=== PATIENT | male | born 1990 | race Caucasian/White ===

== ENCOUNTER → 2022-03-01 12:26 | Outpatient (BNVA) | payer OTHER, SELFPAY | PROVIDERS: Visit Provider Physician Assistant | DX: S30.0XXA Contusion of lower back and pelvis, initial encounter (principal); W01.198A Fall on same level from slipping, tripping and stumbling with subsequent striking against other object, initial encounter; Z23 Encounter for immunization | CPT/HCPCS: 90715; 99203 ==

== ENCOUNTER 2025-06-07 12:21 | Emergency (ER) | payer OTHER, SELFPAY ==
[2025-06-07 13:06] VITALS: BP 179/103; PULSE 88; RESP 16; TEMP 37; O2SAT 97; BMI 25.1
--- NOTE | 2025-06-07 13:14 | ED_ITS ---
HPI - General Adult General Chief complaint: Eye Problems Stated complaint: Swollen eye due to bee sting Time Seen by Provider: 06/07/25 13:11 Source: patient Mode of arrival: ambulatory Limitations: no limitations History of Present Illness ED Provider: Hernesto Yarbrough HPI narrative: 34 yold male with pmh of bee allergies presents to the ED for being stugn below right eye and now right eye is swollen and itchy. Patient states this occured around 11 am. Patient took benadryl 50mg one hours before coming to the ED. Patient denies any lip swelling, tongue swelling, chest pain, shortness of breath, drooling, neck swelling, change in voice, eye pain, or change in vision. Related Data Previous Rx's ?Medication ?Instructions ?Recorded cephalexin 500 mg capsule 500 mg PO QID #28 caps 06/07 diphenhydramine HCl 25 mg capsule 25 mg PO TID PRN all ergic reaction 06/07/25 (Benadryl) #21 caps epinephrine 0.3 mg/0.3 mL 0.3 mg (0.3 mL) IM Q15M PRN 06/07/25 injection, auto-injector (EpiPen anaphylaxis #2 ea 2-Conner) famotidine 40 mg tablet (Pepcid) 40 mg PO DAILY 7 days #7 tabs 06/07/25 prednisone 20 mg tablet 40 mg (2 x 20 mg) PO DAILY 5 days 06/07/25 #10 tabs Allergies Allergy/AdvReac Type Severity Reaction Status Date / Time No Known Allergies Allergy Verified 06/07/25 13:07 Review of Systems 2 Review of Systems: stuck in right eye Yes all other systems are reviewed and are negative REPLACED BY [facility] Social History Social History Advance Directives: No Advance Directives Information Provided: Yes Physical Exam ED Vital Signs: Vital Signs - 24 hr 06/07/25 13:06 06/07/25 14:00 Temperature 98.6 F Pulse Rate 88 74 Respiratory Rate 16 16 Blood Pressure 179/103 H 133/83 Pulse Oximetry 97 97 Oxygen Delivery Method Room Air Room Air BMI result Body Mass Index 25.1 Const General: cooperative, healthy appearing, comfortable, no acute distress, well developed, alert, awake and Physically active Orientation/consciousness: patient oriented x3 HENMT Head: Yes normal to inspection, Yes No palpable skull fracture present, Yes normocephalic and Yes atraumatic Head images: 2 1. swelling, itchy, and erythematous. negative for warmth, discharge, foul odor, or eye pain. negative for lip swelling, tongue swelling, or uvula swelling. Throat: Yes posterior oropharynx normal, Yes tonsils normal and Yes uvula midline Eyes General: appearance normal, both eyes and all related structures Neck Neck: Yes normal visual inspection, Yes full ROM, Yes no lymphadenopathy, Yes no meningeal signs, Yes trachea midline, Yes supple, No anterior neck swelling and No lymphadenopathy Chest Chest palpation & inspection: normal inspection of the chest and normal palpation of entire chest wall Resp Effort & Inspection: normal respiratory effort and able to speak in complete sentences Auscultation: clear to auscultation bilaterally Cardio Jugular venous distension: no JVD Heart sounds: S1 normal heart sound present and S2 normal heart sound present GI Inspection: Yes normal to inspection Palpation (GI): Soft to palpation, not firm, nontender, no guarding and not rigid General: Yes no CVA tenderness Back/Spine/Pelvis Back: no CVA tenderness and No back tenderness Skin General skin exam: no rashes or lesions noted, elasticity normal and turgor normal Neuro General: patient oriented x3, gait normal, tone normal, moves all extremities, Normal light touch and pain sensation, no meningeal signs, no focal motor deficits and CN's II-XI intact bilaterally Extrem General: Yes normal to inspection, Yes full ROM and Yes capillary refill normal Psych Appearance: grossly normal, well kempt and not disheveled Course Course Course Narrative: RME: 34 yold male presents to the ED for right eye swollen after being stung in below right eye at 11am. Patient states no fever, chills, shorntess of breath, swelling of lips, or sensation of throat closing. Patient took benadryl 50mg at 12:17pm. Positive for right upper and lower eyelid swelling without any pain. negative for any photophobia, eye discharge, or pain. soludmedrol and pepcid orderd. Medications Administered Discontinued Medications Generic Name Dose Route Start Last Admin Trade Name Freq PRN Reason Stop Dose Admin Famotidine 20 mg 06/07/25 13:11 06/07/25 13:20 Famotidine/Pf 20 Mg/2 Ml Vial IVPUSH 06/07/25 13:12 20 mg ONCE ONE Administration Methylprednisolone Sodium Succinate 125 mg 06/07/25 13:11 06/07/25 13:20 Methylprednisolone Sod Succ 125 Mg/2 Ml Vial IVPUSH 06/07/25 13:12 125 mg ONCE ONE Administration Medical Decision Making Medical Decision Making [facility] Narrative: 34 yold male presents to the ED for right eye swelling after being stung by bee in right eye by a bee while at work. Patient does not have signs of anyphylaxis. Swelling improved after being given solumedrol, and pepcid. Patietn to be discharged with benadryl, prednisone, pepcid, and epipen. not suspecting orbital cellulitits, sepsis, glaucoma, globe rupture, MRSA, or any other life threatening etiology. patient and explained worrisome signs and informed to return to the ED. Differential Diagnosis Differential Diagnoses: The differential diagnosis associated with the presentation includes (allergic reaction, cellulitits, ) Admission/Observation Consideration of admission/observation: Escalation of care including admission/observation considered Independent Historian Clinical information obtained from an independent historian. History obtained from or confirmed by: Other (patient, ) Prescription Management I considered prescription management with: Antibiotic and Other (prednisone, benadryl, epipen, cephalexin) Discharge Plan Discharge Clinical Impression: Allergic reaction, Bee sting, Bee sting allergy Patient Disposition: Home, Self-Care Instructions: Insect Bite or Sting (ED), Allergies (ED), General Allergic Reaction (ED) Additional Instructions: Return to the ED immediately for any swelling of lips/tongue, chest pain, shortness of breat, fever, chills, rash, eye pain, change in vision, eye discharge, throat closing, chest pain, shortness of breath, or any other concerning symptoms. Recommend follow up with PCP. Prescriptions: New prednisone 20 mg tablet 40 mg PO DAILY 5 Days Qty: 10 0RF diphenhydramine HCl [Benadryl] 25 mg capsule 25 mg PO TID PRN (Reason: allergic reaction) Qty: 21 0RF famotidine [Pepcid] 40 mg tablet 40 mg PO DAILY 7 Days Qty: 7 0RF epinephrine [EpiPen 2-Conner] 0.3 mg/0.3 mL auto-injector 0.3 mg IM Q15M PRN (Reason: anaphylaxis) Qty: 2 0RF Rx Instructions: do not exceed 3 doses per episode. inject into thigh. Use for lip swelling, sensation throat closing, chest pain, shortness of breath, cephalexin 500 mg capsule 500 mg PO QID Qty: 28 0RF Stand Alone Forms: Work/School Release Interventions: ED Discharge Assessment Last Done: 06/07/25 15:00 Discharge Date/Time: 06/07/25 15:09 Print Language: Japanese
--- NOTE | 2025-06-07 13:31 | PC.NURSE ---
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
[2025-06-07 14:00] VITALS: BP 133/83; PULSE 74; RESP 16; O2SAT 97
[2025-06-07 15:00] VITALS: BP 133/83; PULSE 74; RESP 16; TEMP 36.8; O2SAT 97
== END 2025-06-07 15:09 | disposition home or self-care (01) ==
PROVIDERS: Emergency Provider Emergency Medicine
DX: T63.441A Toxic effect of venom of bees, accidental (unintentional), initial encounter (principal); H57.89 Other specified disorders of eye and adnexa; Y92.9 Unspecified place or not applicable
CPT/HCPCS: 96374; 96375; 99283; 99284; J1308; J2919

== ENCOUNTER → 2025-07-13 14:43 | Outpatient (BNVA) | payer OTHER, SELFPAY | PROVIDERS: Visit Provider Emergency Medicine | DX: T63.441A Toxic effect of venom of bees, accidental (unintentional), initial encounter (principal); Z02.79 Encounter for issue of other medical certificate | CPT/HCPCS: 99203 ==